=== PATIENT | male | born 1965 | race Hispanic/Latino ===

== ENCOUNTER 2017-10-10 19:20 | Emergency (ER) | payer SELFPAY ==
[2017-10-10 19:26] VITALS: BP 145/89; PULSE 119; RESP 18; TEMP 98.4; O2SAT 97
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
[2017-10-10] MEDS ORDERED: Tdap Vaccine 0.5 ml Vial (10-64 yrs) IM ONE ×2 (20:08→20:25)
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
== END 2017-10-10 21:20 | disposition home or self-care (01) ==
LOC: H.ER 19:20
DX: S02.32XA Fracture of orbital floor, left side, initial encounter for closed fracture (principal); E11.9 Type 2 diabetes mellitus without complications; Y04.0XXA Assault by unarmed brawl or fight, initial encounter; S09.90XA Unspecified injury of head, initial encounter; Z23 Encounter for immunization